=== PATIENT | female | born 1980 | race African-American/Black ===

== ENCOUNTER 2019-09-03 17:32 | Emergency (ER) | payer OTHER ==
[~2019-09-03] VITALS: Ht 177.8 cm; Wt 113.0 kg
[2019-09-03] MEDS ORDERED: SODIUM CHLORIDE 0.9% 1,000 ML IV ONE (18:27)
[2019-09-03] MEDS ORDERED: PROCHLORPERAZINE 10MG/2ML VIAL IV PRN (18:30)
[2019-09-03] MEDS ORDERED: KETOROLAC 15MG/ML VIAL IV ONE (19:15)
[2019-09-03 20:09] LABS: BASOPHILS % 0.6 % (0.0-2.0); EOSINOPHILS % 0.8 % (0.0-5.0); HEMATOCRIT. 35.2 % (36.0-48.0); HEMOGLOBIN. 11.3 g/dL (12.0-16.0); LYMPHOCYTES % 24.9 % (20.0-50.0); MEAN CORPUSCULAR HEMOGLOBIN 24.5 pg (28.0-32.0); MEAN CORPUSCULAR VOLUME 76.4 fL (81.0-99.0); MEAN PLATELET VOLUME 8.6 fl (7.4-10.4); NEUTROPHILS % 67.7 % (40.0-76.0); PLATELET 328 x1000/uL (130-400); RED CELL DISTRIBUTION WIDTH 16.1 % (11.6-14.6)
[2019-09-03 20:15] LABS: CHLORIDE 106 mEq/L (98-107)
[2019-09-03 20:40] LABS: CLARITY URINE CLEAR (CLEAR); COLOR URINE YELLOW (YELLOW); KETONES URINE NEGATIVE (NEGATIVE); LEUKOCYTE ESTERASE URINE NEGATIVE (NEGATIVE); NITRITE URINE NEGATIVE (NEGATIVE); OCCULT BLOOD URINE NEGATIVE (NEGATIVE); PH URINE 5.5 (4.5-8.0); PROTEIN URINE NEGATIVE (NEGATIVE); SPECIFIC GRAVITY URINE 1.013 (1.005-1.030); UROBILINOGEN URINE 0.2 E.U./dL (0.2-1.0)
[2019-09-03 21:59] VITALS: BP 123/84
== END 2019-09-03 22:05 | disposition home or self-care (01) ==
LOC: ER 17:32
DX: M54.5 Low back pain (principal); R51 Headache
CPT/HCPCS: 36415; 71045; 80053; 81003; 81025; 83880; 84484; 85025; 93005; 96374; 96375; 99284; J1885; J7030; Z7610

== ENCOUNTER 2020-02-23 18:11 | Emergency (ER) | payer OTHER ==
[~2020-02-23] VITALS: Ht 185.4 cm; Wt 104.0 kg
[2020-02-23 18:33] VITALS: BP 126/67
[2020-02-23] MEDS ORDERED: KETOROLAC 30MG/ML VIAL IM ONE (19:00)
== END 2020-02-23 20:41 | disposition home or self-care (01) ==
LOC: ER 18:11
DX: M25.511 Pain in right shoulder (principal); I10 Essential (primary) hypertension
CPT/HCPCS: 73030; 96372; 99283; J1885

== ENCOUNTER 2020-08-02 14:53 | Emergency (ER) | payer OTHER ==
[~2020-08-02] VITALS: Ht 185.4 cm; Wt 119.0 kg
[2020-08-02 14:55] VITALS: BP 140/83
== END 2020-08-02 15:39 | disposition home or self-care (01) ==
LOC: ER 14:53
DX: L02.01 Cutaneous abscess of face (principal); I10 Essential (primary) hypertension
CPT/HCPCS: 99283

== ENCOUNTER 2020-09-17 16:55 | Emergency (ER) | payer OTHER ==
[~2020-09-17] VITALS: Ht 167.6 cm; Wt 90.0 kg
[2020-09-17 17:50] VITALS: BP 152/99
== END 2020-09-17 19:19 | disposition home or self-care (01) ==
LOC: ER 16:55
DX: R06.02 Shortness of breath (principal); R05 Cough
CPT/HCPCS: 71045; 93005; 99283

== ENCOUNTER 2021-07-04 19:04 | Emergency (ER) | payer MEDICAID, OTHER ==
[~2021-07-04] VITALS: Ht 185.4 cm; Wt 177.0 kg
[2021-07-04 19:09] VITALS: BP 136/79
[2021-07-04 21:02] LABS: CLARITY URINE CLOUDY (CLEAR); COLOR URINE YELLOW (YELLOW); KETONES URINE NEGATIVE (NEGATIVE); LEUKOCYTE ESTERASE URINE 2+ (NEGATIVE); NITRITE URINE POSITIVE (NEGATIVE); OCCULT BLOOD URINE 1+ (NEGATIVE); PROTEIN URINE TRACE (NEGATIVE); SPECIFIC GRAVITY URINE 1.017 (1.005-1.030); UROBILINOGEN URINE 0.2 E.U./dL (0.2-1.0)
[2021-07-04] MEDS ORDERED: CIPR500T5 MT (23:09)
== END 2021-07-04 23:18 | disposition home or self-care (01) ==
LOC: ER 19:04
DX: N12 Tubulo-interstitial nephritis, not specified as acute or chronic (principal); I10 Essential (primary) hypertension; Z90.49 Acquired absence of other specified parts of digestive tract
CPT/HCPCS: 81003; 87077; 87186; 99283